=== PATIENT | female | born 1940 | race Hispanic/Latino ===

== ENCOUNTER 2023-12-09 15:10 | Emergency (ER) | payer OTHER ==
[2023-12-09 16:29] LABS: Hematocrit 25.6 % (34.9-44.5); Hemoglobin 8.2 g/dL (12.0-15.5); MDiff Complete? YES; Mean Corpuscular Hemoglobin 25.8 pg (27.0-33.0); Mean Corpuscular Volume 80.5 fL (81.6-98.3); Mean Platelet Volume 9.3 fL (7.4-10.4); Platelet Count 524 10x3/uL (150-450); RBC Distribution Width 14.6 % (11.5-14.5); Red Blood Cell (RBC) Count 3.18 10x6/uL (3.90-5.03); White Blood Cell (WBC) Count 35.8 10x3/uL (3.5-10.5)
[2023-12-09 16:37] LABS: Acetaminophen Less than 10 mcg/mL (Less than 10); Alcohol Less than 10.0 mg/dL (Less than 10); Magnesium 2.1 mg/dL (1.6-2.6); Salicylate Less than 8.0 mg/dL (Less than 8.0)
[2023-12-09 16:44] LABS: ALT (SGPT) 29 U/L (8-55); AST (SGOT) 22 U/L (5-34); Albumin 2.6 g/dL (3.4-4.8); Alkaline Phosphatase 105 U/L (40-110); Anion Gap 19 mmol/L (10-20); BUN (Urea Nitrogen) 97 mg/dL (9.8-20.1); Bilirubin, Total 0.4 mg/dL (0.2-1.2); Calc. Creatinine Clearance 0 mL/min (70-130); Calcium 8.7 mg/dL (7.8-10.44); Carbon Dioxide 18 mmol/L (23-31); Chloride 110 mmol/L (98-107); Estimated GFR 16; Globulin 4.3 g/dL (2.4-3.5); Glucose 129 mg/dL (83-110); Potassium 5.4 mmol/L (3.5-5.1); Protein, Total 6.9 g/dL (5.8-8.1); Sodium 142 mmol/L (136-145); Troponin I 0.041 ng/mL (< 0.028)
[2023-12-09 17:08] LABS: Bilirubin Neg (Negative); Blood, Urine 25 (Negative); Clarity Cloudy (Clear); Glucose, Urine (Dipstick) 50 mg/dL (Negative); Ketone, Urine Negative (Negative); Leukocyte Negative (Negative); Nitrite Negative (Negative); Protein, Urine (Dipstick) 500 mg/dl (Neg-Trace); Urobilinogen Normal mg/dL (Less than 2)
[2023-12-09 17:28] LABS: Amphetamine Not Detected (NotDetected); Barbiturates Screen Not Detected (NotDetected); Benzodiazepine Screen Not Detected (NotDetected); Cocaine Metabolite Screen Not Detected (NotDetected); Methadone Not Detected (NotDetected); Methamphetamine Not Detected (NotDetected); Opiate Screen Not Detected (NotDetected); Oxycodone Screen Not Detected (NotDetected); Phencyclidine (PCP) Not Detected (NotDetected); THC/Cannabinoid Screen Not Detected (NotDetected); Tricyclic Screen Not Detected (NotDetected)
[2023-12-09 17:50] LABS: CAUTI Indications for Culture Alt mental st,lethar; RBC/HPF 0-3 HPF (0-3); Squamous Epithelial 0-3 HPF (0-3); WBC/HPF 0-3 HPF (0-3)
[2023-12-09 17:51] LABS: Bacteria/HPF None Seen HPF (None Seen); Urine Culture Reflex No No
[2023-12-09 18:11] LABS: Band 1 % (5-11); Monocytes 5 % (0-10); Neutrophil 93 % (42-75); Reactive Lymphocytes 1 % (0-10)
[2023-12-09 18:16] LABS: Platelet Adequacy Comment Appears Increased
[2023-12-09 18:17] LABS: Anisocytosis SLIGHT = 6-15 cells (100X) (0-5/hpf); Microcytosis SLIGHT = 6-15 cells (100X) (0-5/hpf)
[2023-12-09] MEDS ORDERED: cefTRIAXone (ROCEPHIN) 1 GM VIAL ONE (18:58)
[2023-12-09] MEDS ORDERED: Aspirin Chewable 81 MG TAB ONE (18:58)
[2023-12-09] MEDS ORDERED: LOKELMA 10 GM PACKET PO SCH (20:00)
== END 2023-12-09 20:37 | disposition short-term general hospital (02) ==
LOC: CSHERS 15:10
DX: N17.9 Acute kidney failure, unspecified (principal); D64.9 Anemia, unspecified; R41.82 Altered mental status, unspecified; E87.5 Hyperkalemia; R79.89 Other specified abnormal findings of blood chemistry; I12.9 Hypertensive chronic kidney disease with stage 1 through stage 4 chronic kidney disease, or unspecified chronic kidney disease; N18.30 Chronic kidney disease, stage 3 unspecified; E11.22 Type 2 diabetes mellitus with diabetic chronic kidney disease; Z87.891 Personal history of nicotine dependence; Z79.899 Other long term (current) drug therapy
CPT/HCPCS: 70450; 71045; 72125; 80053; 80306; 80307; 81001; 82962; 83605; 83735; 84484; 85025; 87040; 87086; 93005; J0696; 36415; 36416; 51701; 96361; 96365